=== PATIENT | female | born 1965 | race Caucasian/White ===

== ENCOUNTER → 2020-03-08 | Outpatient (CLI) | payer OTHER | LOC: RAD 14:52 | DX: Z12.31 Encounter for screening mammogram for malignant neoplasm of breast (principal); Z78.0 Asymptomatic menopausal state ==

== ENCOUNTER → 2020-03-30 | Outpatient (CLI) | payer OTHER | LOC: RAD 08:14 | DX: R92.1 Mammographic calcification found on diagnostic imaging of breast (principal) ==

== ENCOUNTER → 2020-04-04 | Outpatient (CLI) | payer OTHER ==
--- NOTE | 2020-04-11 12:07 | PATH ---
[facility] [address] [place] [address] PATHOLOGY RPT PROCEDURE Name: FARIBAILIA Room #: REG [facility] M.R.#: [id number] Admission: 04/04/20 Date of : 67 Discharge: Report #: [id number] Path Case #: [id number] [facility] Accession Number: [id number] . 01 Material submitted: . breast - RIGHT MEDIAL INFERIOR BREAST CALCIFICATIONS. Modifiers: right, medial, inferior . 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 - Negative for invasive carcinoma. (IUV:preparation supervisor canning; 04/06/2020) MBR 04/06/2020 1312 Local . 02 Comment: ER and OK prognostic markers are ordered on block A1 and the results of these will be reported in an addendum to follow. . Co-review: Dr. Tessy Donato. . Findings of this case are telephoned to miss Villafuerte in our breast center at 11 a.m. on 04/06/2020. . (IUV:preparation supervisor canning; 04/06/2020) . 02 Addendum: . Special studies report received from [facility], [address] [place] [address], [address], [place], [address], on case [id number], labeled with their number [id number], dated 04/10/2020. . Breast/Prognostic Marker Analysis . Specimen Site: Breast, Right Medial Inferior (Biopsy), Ductal Carcinoma In Situ Specimen ID #: [id number] . ER (Estrogen Receptor) Present/Positive Percent: 95.00% Analysis: Manual Comments: Staining Intensity: Strong. Prognostic groupings are reported only for invasive primary breast carcinomas. Please disregard the reference ranges [place] [address] PATHOLOGY RPT PROCEDURE Name: ILIA AGUILLON GABRIELA Room #: REG CL Leonel.#: [id number] Admission: 04/04/20 Date of : 67 Discharge: Report #: [id number] Path Case #: [id number] . OK (Progesterone Receptor) Present/Positive Percent: 60.00% Analysis: Manual Comments: Staining Intensity: Weak-moderate. Prognostic groupings are reported only for invasive primary breast carcinomas. Please disregard the reference ranges to the right. . Time to Fixation (Cold Ischemic Time): Immediate Duration of Fixation: Greater than 6 and less than 72 hours Type of Fixative: 10% Neutral Buffered Formalin . Comments: ER/PgR testing at [facility]. is performed in compliance with the ASCO/CAP Clinical Practice Guidelines. If the result for ER is less than 1% it is reported as Negative; if the ER result is 1-10% it is reported as Low Positive; if the ER result is greater than 10% it is reported as Positive. If the result for PgR is less than 1% it is reported as Negative; if the PgR result is equal to or greater than 1%, it is reported as Positive. . Ref: Flaquita TOMLIN, Kelle HOUSE, Tri M, et al. Estrogen and progesterone receptor testing in breast cancer. ASCO/CAP guideline update. Arch Pathol Lab Med. 2020; 144:545-563. . Whole slide image capture is performed using Ever[employer] ([employer]) platform. Image analysis, if ordered, is performed using Hone and [employer] software. . at [facility]. Lev Castillo M.D. Pathologist . Methodology A rabbit monoclonal antibody (clone SP1) that recognized the Estrogen Receptor is used to perform immunohistochemistry on routinely fixed (formalin) paraffin embedded tissue on the [employer]. The specimen is processed using a secondary antibody-HRP conjugate detection system. The percentage of stained tumor nuclei is determined either manually or by image analysis. This test is intended for in vitro diagnostic use. This test is used for clinical purposes. . A rabbit monoclonal antibody (clone 1E2) that recognized the Progesterone Receptor is used to perform immunohistochemistry on routinely fixed (formalin) paraffin embedded tissue on the [place] Benchmark. The specimen is processed using a secondary antibody-HRP conjugate detection system. [address] [address] PATHOLOGY RPT PROCEDURE Name: ILIA AGUILLON Room #: REG CLMerrick Castaneda.#: [id number] Admission: 04/04/20 Date of : 67 Discharge: Report #: [id number] Path Case #: [id number] The percentage of stained tumor nuclei is determined either manually or by image analysis. This test is intended for in vitro diagnostic use. This test is used for clinical purposes. . Intended Use: This antibody is intended for in vitro diagnostic (IVD) use. Estrogen Receptor (ER) (SP1) is a rabbit monoclonal antibody (IgG) that is intended for the qualitative detection of estrogen receptor (ER) antigen in sections of formalin-fixed, paraffin-embedded tissue. ER is a rabbit monoclonal antibody that recognizes human estrogen receptor alpha. . This antibody is intended for in vitro diagnostic (IVD) use. Progesterone Receptor (OK) (1E2) is a rabbit monoclonal antibody (IgG) that is intended for the qualitative detection of progesterone receptor (OK) antigen in sections of formalin fixed, paraffin embedded tissue. OK is a rabbit monoclonal antibody that recognizes the A and B forms of the human progesterone receptor. . Disclaimer: This Test was performed by [facility] at [address] [place] [address], [address]. . [facility] is a business unit of [facility] [facility] a wholly-owned subsidiary of [employer]. . This assay has not been validated on decalcified tissues. Results should be interpreted with caution if this specimen was decalcified given the likelihood of false negativity on decalcified specimens. . Any image(s) that accompany this report is/are a c s s representative image(s) only and should not be used to render a diagnosis. . This interpretation is contingent on the specimen and the clinical information received. . For any special tests/stains performed, known positive cells or tissues are tested with each marker and examined to ensure positivity. Positive and negative internal controls, if present, react appropriately. . This analysis is an adjunct to the evaluation of the referring physician and does not represent a final diagnosis. . The immunohistochemistry tests performed at [email or web address]. were validated on tissue fixed in 10% neutral buffered formalin. The performance characteristics of the tests performed on tissue processed in other fixatives is not known. . [address] [address] PATHOLOGY RPT PROCEDURE Name: FRANCIS AGUILLONLA GABRIELA Room #: REG [facility] Rambo.Les.#: [id number] Admission: 04/04/20 Date of : 67 Discharge: Report #: [id number] Path Case #: [id number] ER/OK ASCO/CAP guidelines require fixation in neutral buffered formalin for a minimum of 6 and a maximum of 72 hours. Fixation times less than 6 hours may not adequately preserve cell proteins. Fixation times longer than 72 hours may cause excess cross-linking of proteins reducing the antigen available for staining. Either scenario can cause reduced staining; hence false negative results are possible and should be considered for these situations. The time from biopsy/excision to fixation in formalin (cold ischemic time) must be less than 1 hour. Time to fixation (cold ischemic time) greater than 1 hour should be interpreted with caution. REF: Rambo Nina, et al. [place] Society of Clinical Oncology/College of [place] Pathologists Guideline Recommendations for Immunohistochemical Testing of Estrogen and Progesterone Receptors in Breast Cancer. J Clin Oncol. 2009December 19; 28(16): 4273-4619. . A complete copy of the report is on file. . Professional and Technical services performed by [employer]. at [address] [address]. . (IUV:amj 04/11/2020) . MBR/04/11/2020 Addendum Electronically Signed by Gi Wyatt MD, Pathologist . 02 Electronically signed: . Gi Wyatt MD, Pathologist NPI- [id number] . 01 Gross description: . The specimen is received in formalin, labeled "Ilia Aguillon, right" and "right medial inferior breast" per requisition. Received is a white cassette containing multiple segments of yellow lobulated tissue measuring 2.7 x 1.8 x 0.6 cm in aggregate which are transferred to cassette A1. Also received are 3 cores of yellow lobulated tissue measuring between 1.4 cm and 2.2 cm in length and averaging 0.5 cm in diameter which are entirely submitted in A2-A3. The specimen was collected at 12 AM on 04/04/2020 and placed in formalin at 12 AM. The cold ischemic time is less than 1 minute and the total formalin fixation time is greater than 6 hours less than 72 hours. (SDY; 04/05/2020) SYU/ANKIT 04/05/2020 1039 Local . 02 Pathologist provided ICD-10: D05.11 . 02 CPT . 428658 Specimen Comment: A courtesy copy of this report has been sent to [phone], [place] [address] PATHOLOGY RPT PROCEDURE Name: ILIA AGUILLON GABRIELA Room #: REG CL M.R.#: [id number] Admission: 04/04/20 Date of : 67 Discharge: Report #: [id number] Path Case #: [id number] Specimen Comment: [id number] Specimen Comment: Report sent to / DR ROCK Performed at: 01 [facility] [address] [facility] [address], [place] [id number] MD Zack Murray MD Phone: [phone] Performed at: [address] [id number] MD Gi Wyatt MD Phone: [phone]
== END | disposition home or self-care (01) ==
LOC: RADSTEREO 10:08
PROVIDERS: ATTEND Radiology Diagnostic Radiology
DX: D05.11 Intraductal carcinoma in situ of right breast (principal); R92.1 Mammographic calcification found on diagnostic imaging of breast